=== PATIENT | male | born 1945 | race Caucasian/White ===

== ENCOUNTER 2025-05-14 07:30 | Outpatient (CLI) | payer OTHER | END 2025-05-14 07:31 | disposition home or self-care (01) | LOC: BICCT 07:30 | PROVIDERS: ATTEND Internal Medicine Cardiovascular Disease | DX: Z13.6 Encounter for screening for cardiovascular disorders (principal); I25.10 Atherosclerotic heart disease of native coronary artery without angina pectoris | CPT/HCPCS: 75571 ==